=== PATIENT | female | born 1980 | race Caucasian/White ===

== ENCOUNTER 2017-06-14 11:19 | Day surgery (SDC) | payer BC, OTHER ==
[~2017-06-14] VITALS: Ht 165.1 cm; Wt 83.6 kg
[~2017-06-14 11:19] MED LIST: BUPR75 PO; CIPR250 PO; CIPRSO OS; CRUTCH4 USE; DULO30 PO; FAMO20 PO; HYDACE5 PO; IBUP600 PO; IBUP800; IBUP800 PO; IRON150C; NEOPOLHCSU OT; NUVA RING; OXYACE5T PO; PHENA200 PO; POTCHL20ER PO; PROM25 PO; RXHYDACE PO; SERT50 PO; VENL150ER; Verotin-Gr Cap1 EACH PO; [UNRECOGNIZED DRUG - REMARK]
== END 2017-06-14 14:55 | disposition home or self-care (01) ==
LOC: ORSCSDS 11:19
PROVIDERS: Obstetrics & Gynecology
PROC: 10D17ZZ Extraction of Products of Conception, Retained, Via Natural or Artificial Opening (ICD-10-PCS; principal; 2017-06-14 12:45)
DX: O02.1 Missed abortion (principal)
CPT/HCPCS: 88305; J1100; J1885; J2250; J2405; J3010

== ENCOUNTER 2018-06-08 20:05 | Inpatient (IN) | payer OTHER ==
[~2018-06-08] VITALS: Ht 165.1 cm; Wt 0.2 kg
[2018-06-08] MEDS ORDERED: SLOW FE142 MG PO (20:27)
[2018-06-08] MEDS ORDERED: Verotin-Gr Cap1 EACH PO (20:28)
[2018-06-08 20:49] LABS: BASOPHILS ABSOLUTE AUTO 0.06 K/mm3 (0.00-0.23); BASOPHILS PERCENT AUTO 0 % (0-2); EOSINOPHILS ABSOLUTE AUTO 0.19 K/mm3 (0.00-0.68); EOSINOPHILS PERCENT AUTO 1 % (0-6); Hematocrit 33.7 % (33.0-51.0); Hemoglobin 11.4 g/dL (11.5-16.0); IMMATURE GRAN ABSOLUTE AUTO 0.39 K/mm3 (0.00-0.10); IMMATURE GRAN PERCENT AUTO 3 % (0-1); LYMPHOCYTES ABSOLUTE AUTO 2.72 K/mm3 (0.84-5.20); LYMPHOCYTES PERCENT AUTO 17 % (21-46); MONOCYTES ABSOLUTE AUTO 1.11 K/mm3 (0.16-1.47); MONOCYTES PERCENT AUTO 7 % (4-13); Mean Corpuscular HGB 30.6 pg (26.0-34.0); Mean Corpuscular HGB Conc 33.8 g/dL (31.5-36.5); Mean Corpuscular Volume 91 fL (80-100); Mean Platelet Volume 9.5 fL (9.1-12.4); NEUTROPHILS ABSOLUTE AUTO 11.41 K/mm3 (1.96-9.15); NEUTROPHILS PERCENT AUTO 72 % (41-73); Platelet Count 371 K/mm3 (150-400); RDW Coefficient Variation 13.8 % (11.7-14.2); RDW Standard Deviation 45.1 fL (35.1-46.3); Red Blood Cell Count 3.72 M/mm3 (3.80-5.20); White Blood Cell Count 15.88 K/mm3 (4.00-11.30)
[2018-06-10 05:23] LABS: BASOPHILS ABSOLUTE AUTO 0.05 K/mm3 (0.00-0.23); BASOPHILS PERCENT AUTO 0 % (0-2); EOSINOPHILS ABSOLUTE AUTO 0.22 K/mm3 (0.00-0.68); EOSINOPHILS PERCENT AUTO 2 % (0-6); Hematocrit 30.7 % (33.0-51.0); IMMATURE GRAN ABSOLUTE AUTO 0.27 K/mm3 (0.00-0.10); IMMATURE GRAN PERCENT AUTO 2 % (0-1); LYMPHOCYTES ABSOLUTE AUTO 2.95 K/mm3 (0.84-5.20); LYMPHOCYTES PERCENT AUTO 22 % (21-46); MONOCYTES ABSOLUTE AUTO 1.14 K/mm3 (0.16-1.47); MONOCYTES PERCENT AUTO 8 % (4-13); Mean Corpuscular HGB Conc 32.6 g/dL (31.5-36.5); Mean Corpuscular Volume 92 fL (80-100); Mean Platelet Volume 9.3 fL (9.1-12.4); NEUTROPHILS ABSOLUTE AUTO 9.02 K/mm3 (1.96-9.15); NEUTROPHILS PERCENT AUTO 66 % (41-73); Platelet Count 293 K/mm3 (150-400); RDW Standard Deviation 46.5 fL (35.1-46.3); Red Blood Cell Count 3.33 M/mm3 (3.80-5.20); White Blood Cell Count 13.65 K/mm3 (4.00-11.30)
--- NOTE | 2018-06-10 16:37 | NUR ---
PT UNSURE IF SHE WANTS FLU VACCINE AT THIS TIME, WILL DECIDE IF SHE WANTS IT BEFORE DISCHARGE.
--- NOTE | 2018-06-10 23:40 | NUR ---
2200 assumed care. patient resting with baby in arms
--- NOTE | 2018-06-10 23:40 | NUR ---
2230 CALLED TO ROOM. PATIENT TIRED AND UNABLE TO REST BECAUSE BABY IS FUUSY AND SPITTY. BABY OUT TO NURSES STATION. WILL NOT DISTURB PATIENT UNTIL MIDNIGHT UNLESS BABY NEEDS TO BE FED
--- NOTE | 2018-06-11 04:27 | NUR ---
OOB IN ROOM CARING FOR SELF AND .
--- NOTE | 2018-06-11 09:23 | NUR ---
DISCHARGE DISCHARGE TEACHING DONE. MOTHER VERBALIZES UNDERSTANDING OF TEACHING AND FOLLOW UP APPOINTMENTS. NO QUESTIONS OR CONCERNS.
[2018-06-11] MEDS ORDERED: IBUP800 PO (09:53)
[2018-06-11] MEDS ORDERED: ACYC400 PO (09:54)
--- NOTE | 2018-06-11 16:58 | NUR ---
CONSULT. GETTING READY FOR DISCHARGE. HAS BEEN BF AND BOTTLE FEEDING HIM. MILK IS NOT IN YET. INSTRUCT IN ENERGY LEVELS OF THE , HOW SUCK HAS LESS STRENGTH, LESS ABILITY TO BRING HER MILK IN WELL OR TRANSFER WELL. INSTRUCT TO START PUMPING 6-8X/DAY FOR 10-20 MINUTES, USE THE EBM DURING SNS OR FINGER FEEDS TO INCREASE CALORIE INTAKE IN A SHORTER PERIOD OF TIME. TO USE FINGER FEED OR SNS SYRINGE WITH FEEDING TUBE AT BREAST FOR FEEDINGS, AVOID THE BOTTLE FOR NOW. IF HE IS TIRED, FINGER FEED MORE OFTEN. PLAN TO RECHECK WT AT F/U CLINIC TOMORROW. QUESTIONS ANSWERED. MOM IS EXPERIENCED AND WANTS TO BF.
== END 2018-06-11 12:35 | disposition home or self-care (01) | DRG 807 ==
LOC: OBS 20:05 → BC 20:06 → OBS 20:22 → BC 20:23
PROVIDERS: Obstetrics & Gynecology; ADMIT Obstetrics & Gynecology
PROC: 10E0XZZ Delivery of Products of Conception, External Approach (ICD-10-PCS; principal; 2018-06-09)
PROC: 0HQ9XZZ Repair Perineum Skin, External Approach (ICD-10-PCS; 2018-06-09)
PROC: 3E0R3BZ Introduction of Anesthetic Agent into Spinal Canal, Percutaneous Approach (ICD-10-PCS; 2018-06-09)
DX: O69.81X0 Labor and delivery complicated by cord around neck, without compression, not applicable or unspecified (principal); Z37.0 Single live birth; Z3A.36 36 weeks gestation of pregnancy; O70.0 First degree perineal laceration during delivery; Z88.2 Allergy status to sulfonamides
CPT/HCPCS: 36415; 51702; 85025; 87081; 87653; 90471; 90707; J0290; J1885; J2210; J2405; J2590; J3010; J7120

== ENCOUNTER → 2018-07-19 | Outpatient (CLI) | payer OTHER ==
[~2018-07-19] MED LIST changes: +ACYC400 PO; +SLOW FE142 MG PO
[2018-07-19 15:13] LABS: BASOPHILS PERCENT AUTO 1 % (0-2); EOSINOPHILS PERCENT AUTO 2 % (0-6); Hematocrit 41.7 % (33.0-51.0); Hemoglobin 13.3 g/dL (11.5-16.0); IMMATURE GRAN ABSOLUTE AUTO 0.03 K/mm3 (0.00-0.10); IMMATURE GRAN PERCENT AUTO 0 % (0-1); LYMPHOCYTES ABSOLUTE AUTO 3.05 K/mm3 (0.84-5.20); LYMPHOCYTES PERCENT AUTO 32 % (21-46); MONOCYTES ABSOLUTE AUTO 0.73 K/mm3 (0.16-1.47); MONOCYTES PERCENT AUTO 8 % (4-13); Mean Corpuscular HGB 28.7 pg (26.0-34.0); Mean Corpuscular HGB Conc 31.9 g/dL (31.5-36.5); Mean Corpuscular Volume 90 fL (80-100); Mean Platelet Volume 9.3 fL (9.1-12.4); NEUTROPHILS ABSOLUTE AUTO 5.47 K/mm3 (1.96-9.15); NEUTROPHILS PERCENT AUTO 57 % (41-73); Platelet Count 452 K/mm3 (150-400); RDW Coefficient Variation 12.9 % (11.7-14.2); RDW Standard Deviation 42.2 fL (35.1-46.3); Red Blood Cell Count 4.63 M/mm3 (3.80-5.20); White Blood Cell Count 9.58 K/mm3 (4.00-11.30)
== END | disposition home or self-care (01) ==
LOC: LAB 11:49 → LAB SHORT 11:49
PROVIDERS: Obstetrics & Gynecology
DX: Z01.812 Encounter for preprocedural laboratory examination (principal)
CPT/HCPCS: 36415; 85025

== ENCOUNTER 2018-08-02 13:26 | Day surgery (SDC) | payer OTHER ==
[~2018-08-02] VITALS: Ht 165.1 cm; Wt 86.2 kg
[~2018-08-02 13:26] MED LIST changes: +BUPR150T2 PO; -BUPR75 PO; +BUSP5 PO; +METO10 PO; +VENL37.5ER PO
== END 2018-08-02 16:25 | disposition home or self-care (01) ==
LOC: ORSCSDS 13:26
PROVIDERS: Obstetrics & Gynecology
PROC: 0UB74ZZ Excision of Bilateral Fallopian Tubes, Percutaneous Endoscopic Approach (ICD-10-PCS; principal; 2018-08-02 15:00)
DX: Z30.2 Encounter for sterilization (principal); F32.9 Major depressive disorder, single episode, unspecified
CPT/HCPCS: 88302; J0330; J1100; J1885; J2250; J2405; J2704; J2765; J3010; J7120

== ENCOUNTER → 2018-10-31 | Outpatient (CLI) | payer BC, OTHER ==
[2018-10-31 11:27] LABS: Source, Urine Clean Catch
[2018-10-31 12:24] LABS: Bilirubin, Urine Neg (Neg); Blood, Urine 3+ (Neg); Glucose Qualitative, Urine Neg (Neg); Ketones, Urine Neg (Neg); Leukocyte Esterase, Urine 3+ (Neg); Nitrite, Urine Neg (Neg); Protein, Urine 1+ (Neg); Specific Gravity, Urine 1.015 (1.003-1.022); Urobilinogen, Urine NORM (Normal)
[2018-10-31 12:32] LABS: Appearance, Urine Hazy (Clear); Color, Urine Yellow (P-Yellow)
[2018-10-31 12:34] LABS: Bacteria Few /hpf; Mucus Mod (0-Heavy); Squamous Epithelial Cells Many /hpf (Few)
== END | disposition home or self-care (01) ==
LOC: LAB 09:17 → LAB SHORT 09:17
PROVIDERS: Obstetrics & Gynecology
DX: R82.90 Unspecified abnormal findings in urine (principal)
CPT/HCPCS: 81001; 87077; 87086; 87186

== ENCOUNTER → 2019-01-08 | Outpatient (CLI) | payer BC, OTHER | END | disposition home or self-care (01) | LOC: LAB 08:15 → LAB SHORT 08:15 | DX: Z09 Encounter for follow-up examination after completed treatment for conditions other than malignant neoplasm (principal); Z87.440 Personal history of urinary (tract) infections | CPT/HCPCS: 87077; 87086; 87186 ==

== ENCOUNTER → 2019-05-14 | Outpatient (CLI) | payer BC, OTHER ==
[2019-05-14 16:55] LABS: Source, Urine Clean Catch
[2019-05-14 18:41] LABS: Bilirubin, Urine Neg (Neg); Blood, Urine 2+ (Neg); Glucose Qualitative, Urine Neg (Neg); Ketones, Urine Neg (Neg); Leukocyte Esterase, Urine 2+ (Neg); Nitrite, Urine Neg (Neg); Protein, Urine 1+ (Neg); Urobilinogen, Urine NORM (Normal)
[2019-05-14 18:51] LABS: Appearance, Urine Hazy (Clear); Color, Urine Yellow (P-Yellow)
[2019-05-14 18:52] LABS: White Blood Cells, Urine 50-100 /hpf (0-5)
[2019-05-14 18:53] LABS: Bacteria Mod /hpf; Squamous Epithelial Cells Few /hpf (Few); Transitional Epithelial Cells Few /hpf (0-Rare)
== END | disposition home or self-care (01) ==
LOC: OLS 16:54 → LAB SHORT 16:54
PROVIDERS: Registered Nurse
DX: N39.0 Urinary tract infection, site not specified (principal)
CPT/HCPCS: 81001

== ENCOUNTER → 2021-04-05 | Outpatient (CLI) | payer BC, OTHER ==
[2021-04-07 15:11] LABS: HPV 16 Negative (Negative); HPV 18 Negative (Negative); HPV OTHER HR TYPES Negative (Negative)
== END | disposition home or self-care (01) ==
LOC: LAB SHORT 15:10
PROVIDERS: Family Medicine
DX: Z12.4 Encounter for screening for malignant neoplasm of cervix (principal)
CPT/HCPCS: 87624; G0123

== ENCOUNTER → 2021-07-20 | Outpatient (CLI) | payer BC, OTHER ==
[2021-07-21 08:12] LABS: HIV AB/P24 AG SCREEN Non Reactive (Non Reactive)
[2021-07-21 09:12] LABS: HBSAG SCREEN Negative (Negative)
[2021-07-22 08:11] LABS: CHLAMYDIA BY NAA Negative (Negative); GONOCOCCUS BY NAA Negative (Negative); TRICH VAG BY NAA Negative (Negative)
== END | disposition home or self-care (01) ==
LOC: LAB SHORT 17:25 → LAB 17:25
PROVIDERS: Family Medicine
DX: Z11.3 Encounter for screening for infections with a predominantly sexual mode of transmission (principal)
CPT/HCPCS: 86592; 86695; 86696; 87340; 87389; 87491; 87591; 87661

== ENCOUNTER → 2022-10-26 | Outpatient (CLI) | payer BC, OTHER ==
[2022-10-27 10:25] LABS: Candida species (DNA Probe) Negative (NEGATIVE); G. vaginalis (DNA Probe) Positive (NEGATIVE); T. vaginalis (DNA Probe) Negative (NEGATIVE)
[2022-10-28 01:10] LABS: CHLAMYDIA TRACHOMATIS, NAA Negative (Negative)
== END ==
LOC: LAB SHORT 17:14 → LAB 17:14
PROVIDERS: Family Medicine
DX: Z11.3 Encounter for screening for infections with a predominantly sexual mode of transmission (principal); N89.8 Other specified noninflammatory disorders of vagina
CPT/HCPCS: 87480; 87491; 87510; 87591; 87660

== ENCOUNTER → 2023-09-18 | Outpatient (CLI) | payer OTHER ==
[2023-09-21 09:29] LABS: APTIMA MEDIA TYPE Urine; C. TRACHOMATIS BY TMA Negative (Negative); N. GONORRHOEAE BY TMA Negative (Negative); SPECIMEN SOURCE Urine
== END | disposition home or self-care (01) ==
LOC: LAB SHORT 17:53 → LAB 17:53
PROVIDERS: Family Medicine
DX: Z11.3 Encounter for screening for infections with a predominantly sexual mode of transmission (principal)
CPT/HCPCS: 87491; 87591